=== PATIENT | male | born 1940 | race Caucasian/White ===

== ENCOUNTER → 2018-01-28 | Outpatient (REF) | payer OTHER, MEDICARE, BC ==
[2018-01-28 17:02] LABS: APPEARANCE, URINE CLEAR (CLEAR); BACTERIA, URINE AUTO NEGATIVE (NEGATIVE); BILIRUBIN, URINE AUTO NEGATIVE (NEGATIVE); BLOOD, URINE BLOOD NEGATIVE (NEGATIVE); COLOR, URINE YELLOW (YELLOW); GLUCOSE, URINE (UA) AUTO NEGATIVE (NEGATIVE); KETONE, URINE AUTO NEGATIVE (NEGATIVE); LEUKOCYTE ESTERASE, URINE AUTO NEGATIVE (NEGATIVE); NITRITE, URINE AUTO NEGATIVE (NEGATIVE); PROTEIN, URINE AUTO NEGATIVE (NEGATIVE); RBC, URINE AUTO 1 /HPF (0-3); RETIC HEMOGLOBIN EQUIVALENT 31.9 pg (24-36); RETICULOCYTE # 29.1 10^9/L (17-77); RETICULOCYTE % 0.7 % (0.5-1.5); SPECIFIC GRAVITY URINE AUTO 1.023 (1.002-1.035); SQUAMOUS EPITHELIAL CELL UR AU 1 /HPF (0-6); UROBILINOGEN, URINE AUTO 0.2 mg/dL (0.0-2.0); WBC, URINE AUTO 2 /HPF (0-3)
[2018-01-28 17:04] LABS: REASON FOR REVIEW ANEMIA / RBC MORPH; SLIDE REVIEW Report; SOURCE PERIPHERAL SMEAR
[2018-01-28 17:52] LABS: TOTAL PROTEIN,RANDOM URINE 14.3 MG/DL (0.0-12.0); URINE TOTAL PROTEIN 14.3 MG/DL (0-12)
[2018-01-28 18:43] LABS: FERRITIN 54 NG/ML (26-388); IMMUNOGLOBULIN G 620 MG/DL (681-1648); IMMUNOGLOBULIN M 3260 MG/DL (40-230); IRON (FE) 49 UG/DL (65-175); PERCENT SATURATION 16.7 % (19.7-50.0); TOTAL IRON BINDING CAPACITY 293 UG/DL (250-450); TOTAL PROTEIN 9.5 GM/DL (6.4-8.2)
[2018-01-29 08:07] LABS: FOLATE 19.6 NG/ML; VITAMIN B12 LEVEL 327 PG/ML
[2018-01-29 09:10] LABS: IMMUNOGLOBULIN A 33.4 MG/DL (70-400)
[2018-02-02 10:14] LABS: ANTINUCLEAR ANTIBODIES DIRECT Negative (Negative); FREE KAPPA LIGHT CHAINS SERUM 17.8 mg/L (3.3-19.4); FREE LAMBDA LIGHT CHAINS SERUM 14.2 mg/L (5.7-26.3); HOMOCYST(E)INE SERUM 10.4 umol/L (0.0-15.0); KAPPA/LAMBDA RATIO SERUM 1.25 (0.26-1.65); METHYLMALONIC ACID 271 nmol/L (0-378)
[2018-02-02 10:14] LABS: SOLUBLE TRANSFERRIN RECEPTOR 13.6 nmol/L (12.2-27.3)
== END ==
LOC: M LAB REF 16:31
DX: D64.9 Anemia, unspecified (principal)

== ENCOUNTER → 2018-02-11 | Outpatient (REF) | payer OTHER, MEDICARE, BC ==
[2018-02-16 08:11] LABS: BETA 2 MICROGLOBULIN 3.7 mg/L (0.6-2.4)
[2018-02-16 08:11] LABS: SERUM VISCOSITY 3.2 rel.saline (1.6-1.9)
== END ==
LOC: M LAB REF 18:01
DX: C90.00 Multiple myeloma not having achieved remission (principal)
CPT/HCPCS: 85810

== ENCOUNTER → 2018-04-28 | Outpatient (REF) | payer MEDICARE, BC ==
[2018-04-28 15:08] LABS: IMMUNOGLOBULIN M 1230 MG/DL (40-230)
== END ==
LOC: M LAB REF 13:49
DX: C83.00 Small cell B-cell lymphoma, unspecified site (principal)
CPT/HCPCS: 82784

== ENCOUNTER → 2018-05-19 | Outpatient (REF) | payer MEDICARE, BC ==
[2018-05-19 14:00] LABS: IMMUNOGLOBULIN M 485 MG/DL (40-230)
== END ==
LOC: M LAB REF 13:04
DX: C83.00 Small cell B-cell lymphoma, unspecified site (principal)
CPT/HCPCS: 82784

== ENCOUNTER → 2018-07-01 | Outpatient (REF) | payer MEDICARE, BC ==
[2018-07-01 17:42] LABS: IMMUNOGLOBULIN G 394 MG/DL (681-1648); IMMUNOGLOBULIN M 262 MG/DL (40-230)
== END ==
LOC: M LAB REF 14:16
DX: C83.00 Small cell B-cell lymphoma, unspecified site (principal)
CPT/HCPCS: 82784

== ENCOUNTER → 2019-10-18 | Outpatient (REF) | payer MEDICARE, BC ==
[~2019-10-18] MED LIST: AVAP75TA7 PO; AVOD0.5C PO; BLOOTES VI; CARV3.12 PO; CORE12.5 PO; DUTA1CAP PO; FARX1TAB3 PO; FERR325T3 PO; FLOM0.4C39 PO; FURO20TA2 PO; HYDR-3910 PO; IRBE75TA5 PO; LANS15CA PO; NATE120T4 PO; PRAV1TAB39 PO; PREV15CA18 PO; RANO500T7 PO; TRAD5TAB PO
[2019-10-18 14:09] LABS: ALBUMIN 3.6 GM/DL (3.2-5.2); CALCIUM LEVEL 8.4 MG/DL (8.8-10.2); CREATININE FOR GFR 2.01 MG/DL (0.70-1.30); GLOMERULAR FILTRATION RATE 34.5 (>42); MAGNESIUM LEVEL 2.3 MG/DL (1.8-2.4); PHOSPHORUS LEVEL 2.8 MG/DL (2.5-4.9); POTASSIUM SERUM 3.9 MEQ/L (3.5-5.1)
== END ==
LOC: M LAB REF 12:43
PROVIDERS: ATTEND Nurse Practitioner Family
DX: N18.3 Chronic kidney disease, stage 3 (moderate) (principal); E83.42 Hypomagnesemia